=== PATIENT | female | born 1950 | race African-American/Black ===

== ENCOUNTER → 2016-11-07 | Outpatient (CLI) | payer MEDICARE, MEDICAID ==
[~2016-11-07] MED LIST: AMLO10TA80; IBUP-1008; SEE MED SHEET; VALS320T9
== END | disposition home or self-care (01) ==
LOC: RAD 15:19
PROVIDERS: ATTEND Family Medicine
DX: S86.892A Other injury of other muscle(s) and tendon(s) at lower leg level, left leg, initial encounter (principal); X58.XXXA Exposure to other specified factors, initial encounter; Y93.89 Activity, other specified; Y92.89 Other specified places as the place of occurrence of the external cause; Y99.8 Other external cause status
CPT/HCPCS: 73590

== ENCOUNTER 2017-05-05 14:13 | Emergency (ER) | payer OTHER, MEDICAID ==
[~2017-05-05] VITALS: Ht 170.2 cm; Wt 74.0 kg
[~2017-05-05 14:13] MED LIST changes: +VALS320T2; -VALS320T9
[2017-05-05 14:29] VITALS: BP 185/95
== END 2017-05-05 16:42 | disposition left against medical advice (07) ==
LOC: ER 14:13
DX: Z04.3 Encounter for examination and observation following other accident (principal); M25.572 Pain in left ankle and joints of left foot; Z53.21 Procedure and treatment not carried out due to patient leaving prior to being seen by health care provider

== ENCOUNTER 2017-05-09 10:56 | Emergency (ER) | payer MEDICARE, MEDICAID ==
[~2017-05-09] VITALS: Ht 170.2 cm; Wt 73.0 kg
[2017-05-09] MEDS ORDERED: IBUPROFEN 600MG TABLET PO ONE (11:45)
[2017-05-09 11:48] VITALS: BP 140/87
== END 2017-05-09 14:40 | disposition home or self-care (01) ==
LOC: ER 10:56
DX: S92.002A Unspecified fracture of left calcaneus, initial encounter for closed fracture (principal); S92.355A Nondisplaced fracture of fifth metatarsal bone, left foot, initial encounter for closed fracture; I10 Essential (primary) hypertension; W19.XXXA Unspecified fall, initial encounter; Y93.89 Activity, other specified; Y92.89 Other specified places as the place of occurrence of the external cause; Y99.8 Other external cause status
CPT/HCPCS: 29515; 73610; 73630; 99284

== ENCOUNTER 2017-06-10 11:56 | Emergency (ER) | payer MEDICARE, MEDICAID ==
[~2017-06-10] VITALS: Ht 170.2 cm; Wt 73.0 kg
[2017-06-10 16:50] VITALS: BP 152/98
== END 2017-06-10 18:37 | disposition home or self-care (01) ==
LOC: ER 13:31
DX: S92.002D Unspecified fracture of left calcaneus, subsequent encounter for fracture with routine healing (principal); S92.352D Displaced fracture of fifth metatarsal bone, left foot, subsequent encounter for fracture with routine healing; S82.52XD Displaced fracture of medial malleolus of left tibia, subsequent encounter for closed fracture with routine healing; W19.XXXD Unspecified fall, subsequent encounter; M85.80 Other specified disorders of bone density and structure, unspecified site; R03.0 Elevated blood-pressure reading, without diagnosis of hypertension
CPT/HCPCS: 73610; 73630; 99284

== ENCOUNTER 2019-02-24 16:47 | Emergency (ER) | payer MEDICARE, MEDICAID ==
[~2019-02-24] VITALS: Ht 170.2 cm; Wt 79.0 kg
[2019-02-24 17:03] VITALS: BP 164/95
[2019-02-24] MEDS ORDERED: ACETAMINOPHEN 325MG TABLET PO STA (18:06)
== END 2019-02-24 19:20 | disposition home or self-care (01) ==
LOC: ER 16:47
DX: M54.6 Pain in thoracic spine (principal); I10 Essential (primary) hypertension; J45.909 Unspecified asthma, uncomplicated; W01.0XXA Fall on same level from slipping, tripping and stumbling without subsequent striking against object, initial encounter; Y93.K1 Activity, walking an animal; Y92.9 Unspecified place or not applicable; Z88.8 Allergy status to other drugs, medicaments and biological substances; Z98.890 Other specified postprocedural states
CPT/HCPCS: 71045; 72070; 99283